=== PATIENT | male | born 1990 | race Caucasian/White ===

== ENCOUNTER 2017-08-30 03:48 | Emergency (ER) | payer BC, OTHER ==
--- NOTE | 2017-08-30 04:01 | EDM.PDOC ---
ED HPI GENERAL MEDICAL PROBLEM - General Chief Complaint: Chest Pain Stated Complaint: SOB Time Seen by Provider: 08/30/17 04:01 - History of Present Illness INITIAL COMMENTS - FREE TEXT/NARRATIVE: 26-year-old male presents emergency room after having an episode of chest pain. Patient had a 15-20 minute episode about 45 minutes prior to arrival to the emergency room where he had sharp chest discomfort making it difficult for him to breathe. The pain was in his lower chest substernal area did not involve his back. His symptoms have completely resolved at this point. Patient is otherwise and breathing okay no cough no wheezing. Patient has not had any fevers or chills. Patient's chronic abdominal issues but nothing out of the ordinary for him he has not had any heartburn or reflux. The patient had an episode similar to this about a month ago but tonight was more severe. The patient was seen here a little over a year ago diagnosed with bronchitis this is much different than that. Chest Pain Score (Numeric/FACES): 4 - Related Data Allergies Allergy/AdvReac Type Severity Reaction Status Date / Time No Known Allergies Allergy Verified 05/08/16 02:33 Home Meds: Home Meds Cyclobenzaprine [Flexeril] 10 mg PO Q8H PRN 08/30/17 [History] oxyCODONE HCl/Acetaminophen [Percocet 5-325 mg Tablet] 1 tab PO Q6H PRN [History] Past Medical History - Past Health History Medical/Surgical History: Denies Medical/Surgical History Gastrointestinal History: Reports: Irritable Bowel Syndrome Social & Family History - Tobacco Use Smoking Status *Q: Current Every Day Smoker Years of Tobacco use: 6 Packs/Tins Daily: 0.5 - Alcohol Use Days Per Week of Alcohol Use: 4 Number of Drinks Per Day: 8 Total Drinks Per Week: 32 - Recreational Drug Use Recreational Drug Use: No - Living Situation & Occupation Living situation: Reports: Single Occupation: Employed ED ROS GENERAL - Review of Systems Review Of Systems: See Below Constitutional: Reports: No Symptoms HEENT: Reports: No Symptoms Respiratory: Reports: Shortness of Breath (Only with the episode otherwise he is doing fine) Cardiovascular: Reports: Chest Pain (Only with the episode otherwise he is doing fine) GI/Abdominal: Reports: Abdominal Pain (Chronic) : Reports: No Symptoms Neurological: Reports: No Symptoms Psychiatric: Reports: No Symptoms ED EXAM, GENERAL - Physical Exam Exam: See Below Exam Limited By: No Limitations General Appearance: Alert, No Apparent Distress, Other (He is symptom-free at this time) Head: Atraumatic, Normocephalic Neck: Normal Inspection, Supple, Non-Tender, Full Range of Motion Respiratory/Chest: No Respiratory Distress, Lungs Clear, Normal Breath Sounds Cardiovascular: Regular Rate, Rhythm, No Edema, No Murmur GI/Abdominal: Normal Bowel Sounds, Soft, Other (Vague discomfort no rebound or guarding no rigidity noted distention) Back Exam: Normal Inspection. No: CVA Tenderness (L), CVA Tenderness (R) Extremities: Non-Tender, No Pedal Edema, Other (No calf tenderness) Psychiatric: Normal Affect, Normal Mood EKG INTERPRETATION EKG Date: 08/30/17 Rhythm: NSR [place]: Normal P-Wave: Present QRS: Normal ST-T: Normal QT: Normal Comparison: No Change EKG Interpretation Comments: Normal age appropriate EKG Course - Vital Signs Last Recorded V/S: Last Vital Signs Temp 36.2 C 08/30/17 03:56 Pulse 90 08/30/17 03:56 Resp 24 H 08/30/17 03:56 BP 131/90 08/30/17 03:56 Pulse Ox 97 08/30/17 03:56 - Re-Assessments/Exams Free Text/Narrative Re-Assessment/Exam: 08/30/17 04:35 Patient is symptom-free at this point he refuses chest x-ray or any blood work. Offered to observe him see if his symptoms returned he would like to go. Departure - Departure Time of Disposition: 04:29 Disposition: Home, Self-Care 01 Clinical Impression: Chest pain Referrals: Oskar Bustamante PA-C [Primary Care Provider] - Forms: ED Department Discharge Additional Instructions: Return to the emergency room with any questions or problems. Follow-up with your regular provider in the clinic early this next week for recheck.
[2017-08-30 04:02] VITALS: BP 131/90
== END 2017-08-30 04:32 | disposition home or self-care (01) ==
LOC: JD.ED 03:48
DX: R07.9 Chest pain, unspecified (principal); F17.210 Nicotine dependence, cigarettes, uncomplicated
CPT/HCPCS: 93005; 93010; 99283; 99285-25

== ENCOUNTER 2021-06-11 02:06 | Emergency (ER) | payer OTHER ==
[2021-06-11 02:37] VITALS: BP 146/100; PULSE 112
== END 2021-06-11 02:35 | disposition left against medical advice (07) ==
LOC: JD.ED 02:06
DX: Z53.21 Procedure and treatment not carried out due to patient leaving prior to being seen by health care provider (principal)

== ENCOUNTER 2021-06-23 15:15 | Emergency (ER) | payer OTHER ==
[2021-06-23] MEDS ORDERED: LORazepam 2 MG/ML SDV IM ONE (15:59)
--- NOTE | 2021-06-23 15:59 | EDM.PDOC ---
ED HPI GENERAL MEDICAL PROBLEM - General Chief Complaint: General Stated Complaint: UNABLE TO MOVE HANDS Time Seen by Provider: 06/23/21 15:52 - History of Present Illness INITIAL COMMENTS - FREE TEXT/NARRATIVE: 30-year-old male presents the emergency room with difficulty moving his hands. This started out as generalized upper extremity from the elbow distal numbness and tingling to not being able to move his fingers. Patient complains of being very anxious at this time. The patient has not had an episode like this where he could not move his hands however he has had problems with anxiety to some degree in the past. Patient states that he is unemployed and his recently left him. 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 Home Meds: Home Meds LORazepam [Ativan] 1 mg PO DAILY PRN #8 tablet 06/23/21 [Rx] Past Medical History - Past Health History Medical/Surgical History: Denies Medical/Surgical History HEENT History: Reports: None Cardiovascular History: Reports: None Respiratory History: Reports: None Gastrointestinal History: Reports: Irritable Bowel Syndrome Genitourinary History: Reports: None Musculoskeletal History: Reports: None, Arthritis Other Musculoskeletal History: noted to hip bu can't recall which one Neurological History: Reports: Concussion Psychiatric History: Reports: None, Anxiety Other Psychiatric History: pt feels he had anxiety attack which is new for him Endocrine/Metabolic History: Reports: None Hematologic History: Reports: None Immunologic History: Reports: None Oncologic (Cancer) History: Reports: None Dermatologic History: Reports: None - Infectious Disease History Infectious Disease History: Reports: Chicken Pox - Past Surgical History Head Surgeries/Procedures: Reports: None HEENT Surgical History: Reports: None Cardiovascular Surgical History: Reports: None Respiratory Surgical History: Reports: None GI Surgical History: Reports: None Male Surgical History: Reports: None Endocrine Surgical History: Reports: None Neurological Surgical History: Reports: None Musculoskeletal Surgical History: Reports: None, Other (See Below) Other Musculoskeletal Surgeries/Procedures:: has left knee issues Oncologic Surgical History: Reports: None Dermatological Surgical History: Reports: None Social & Family History - Family History Family Medical History: No Pertinent Family History Cardiac: Reports: [place] Neurological: Reports: CVA - Tobacco Use Tobacco Use Status *Q: Current Every Day Tobacco User Years of Tobacco use: 10 Packs/Tins Daily: 0.5 - Caffeine Use Caffeine Use: Reports: Tea - Recreational Drug Use Recreational Drug Use: No - Living Situation & Occupation Living situation: Reports: Single Occupation: Employed ED ROS GENERAL - Review of Systems Review Of Systems: See Below Constitutional: Reports: No Symptoms HEENT: Reports: No Symptoms Respiratory: Reports: No Symptoms Cardiovascular: Reports: No Symptoms Endocrine: Reports: No Symptoms GI/Abdominal: Reports: No Symptoms Musculoskeletal: Denies: Shoulder Pain, Arm Pain, Back Pain, Hand Pain Skin: Reports: No Symptoms Neurological: Denies: Headache Psychiatric: Reports: Anxiety ED EXAM, GENERAL - Physical Exam Exam: See Below Exam Limited By: No Limitations General Appearance: Alert, Anxious Eye Exam: Bilateral Eye: Normal Inspection Ears: Normal External Exam, Normal Canal, Hearing Grossly Normal, Normal TMs Nose: Normal Inspection, Normal Mucosa, No Blood Throat/Mouth: Normal Inspection, Normal Lips, Normal Teeth, Normal Gums, Normal Oropharynx, Normal Voice, No Airway Compromise Head: Atraumatic, Normocephalic Neck: Normal Inspection, Supple, Non-Tender, Full Range of Motion. No: Lymphadenopathy (L), Lymphadenopathy (R) Respiratory/Chest: No Respiratory Distress, Lungs Clear, Normal Breath Sounds Cardiovascular: Regular Rate, Rhythm, No Edema, No Murmur GI/Abdominal: Normal Bowel Sounds, Soft, Non-Tender Neurological: Alert, Oriented, Other (The patient can do everything with his upper extremities but he has hesitancy to doing it) Psychiatric: Anxious Lymphatic: No Adenopathy Course - Vital Signs Last Recorded V/S: Last Vital Signs Temp 36.6 C 06/23/21 18:26 Pulse 74 06/23/21 18:26 Resp 16 06/23/21 18:26 BP 113/88 06/23/21 18:26 Pulse Ox 98 06/23/21 18:26 - Orders/Labs/Meds Meds: Medications Discontinued Medications Generic Name Dose Route Start Last Admin Trade Name Freq PRN Reason Stop Dose Admin Lorazepam 2 mg 06/23/21 15:59 06/23/21 16:14 Lorazepam 2 Mg/Ml Sdv IM 06/23/21 16:00 2 mg ONETIME ONE Administration - Re-Assessments/Exams Free Text/Narrative Re-Assessment/Exam: 06/23/21 18:44 Patient was given 2 mg of IM lorazepam and he was able to sleep he feels much better his hands work fine and he is back to normal we will discharge. I did have a long discussion with the patient he is not having any suicidal thoughts or thoughts of harming anyone. Departure - Departure Time of Disposition: 18:45 Disposition: Home, Self-Care 01 Clinical Impression: Anxiety - Discharge Information Referrals: Oskar Bustamante PA-C [Primary Care Provider] - Forms: ED Department Discharge Additional Instructions: Return to the emergency room with any questions problems or worsening symptoms. Follow-up with your regular healthcare provider this next week. I have sent a prescription for Ativan 1 mg he may use 1 daily only if absolutely needed for your anxiety. I have given you 8 pills. Allow 12 hours after using this medication before driving or returning to work as it can cause significant sedation and limit your abilities to drive and operate equipment. Sepsis Event Note (ED) - Focused Exam Vital Signs: Vital Signs Temp Pulse Resp BP Pulse Ox 06/23/21 18:26 36.6 C 74 16 113/88 98 06/23/21 15:37 36.7 C 71 20 129/94 H 99
[2021-06-23 18:27] VITALS: BP 113/88; PULSE 74
== END 2021-06-23 19:12 | disposition home or self-care (01) ==
LOC: JD.ED 15:15
DX: F41.9 Anxiety disorder, unspecified (principal); Z72.0 Tobacco use; Z86.73 Personal history of transient ischemic attack (TIA), and cerebral infarction without residual deficits
CPT/HCPCS: 96372; 99283; J2060

== ENCOUNTER 2021-08-22 15:05 | Emergency (ER) | payer SELFPAY ==
[2021-08-22 15:14] VITALS: BP 129/97; PULSE 88
== END 2021-08-22 15:30 ==
LOC: JD.ED 15:05
DX: Z53.21 Procedure and treatment not carried out due to patient leaving prior to being seen by health care provider (principal)

== ENCOUNTER 2021-08-22 19:03 | Emergency (ER) | payer SELFPAY ==
[2021-08-22 19:42] VITALS: BP 134/97; PULSE 88
== END 2021-08-22 19:27 | disposition left against medical advice (07) ==
LOC: JD.ED 19:03
DX: Z53.21 Procedure and treatment not carried out due to patient leaving prior to being seen by health care provider (principal)

== ENCOUNTER 2021-08-23 05:59 | Emergency (ER) | payer SELFPAY ==
[2021-08-23 06:11] VITALS: BP 142/105; PULSE 98
[2021-08-23] MEDS ORDERED: Ondansetron 4 MG/2 ML SDV IVPUSH ONE (06:29)
[2021-08-23] MEDS ORDERED: Lactated Ringers 1,000 ML IV ONE (06:29)
[2021-08-23] MEDS ORDERED: LORazepam 2 MG/ML SDV IVPUSH ONE (06:29)
--- NOTE | 2021-08-23 07:05 | EDM.PDOC ---
ED HPI GENERAL MEDICAL PROBLEM - General Chief Complaint: Behavioral/Psych Stated Complaint: ANXIETY Time Seen by Provider: 08/23/21 06:25 - History of Present Illness INITIAL COMMENTS - FREE TEXT/NARRATIVE: 30-year-old male presents the emergency room complaining of anxiety and nausea and vomiting. Patient is apparently has a longstanding anxiety disorder. He has been out of his Ativan for I am not sure how long. The patient states he has been taking Lexapro for 6 to 8 weeks for his anxiety and is not helping. So 2 days ago he stopped it cold turkey the patient really does not give any more useful history other than he is fairly demanding on his time restraints and wants everything done within just a few minutes so he can get back to his apartment. - Related Data Allergies Allergy/AdvReac Type Severity Reaction Status Date / Time No Known Allergies Allergy Verified 08/23/21 06:07 Home Meds: Home Meds . [No Known Home Meds] 08/22/21 [History] Past Medical History - Past Health History Medical/Surgical History: Denies Medical/Surgical History HEENT History: Reports: None Cardiovascular History: Reports: None Respiratory History: Reports: None Gastrointestinal History: Reports: Irritable Bowel Syndrome Genitourinary History: Reports: None Musculoskeletal History: Reports: None, Arthritis Other Musculoskeletal History: noted to hip bu can't recall which one Neurological History: Reports: Concussion Psychiatric History: Reports: Anxiety Other Psychiatric History: pt feels he had anxiety attack which is new for him Endocrine/Metabolic History: Reports: None Hematologic History: Reports: None Immunologic History: Reports: None Oncologic (Cancer) History: Reports: None Dermatologic History: Reports: None - Infectious Disease History Infectious Disease History: Reports: Chicken Pox - Past Surgical History Head Surgeries/Procedures: Reports: None HEENT Surgical History: Reports: None Cardiovascular Surgical History: Reports: None Respiratory Surgical History: Reports: None GI Surgical History: Reports: None Male Surgical History: Reports: None Endocrine Surgical History: Reports: None Neurological Surgical History: Reports: None Musculoskeletal Surgical History: Reports: None, Other (See Below) Other Musculoskeletal Surgeries/Procedures:: has left knee issues Oncologic Surgical History: Reports: None Dermatological Surgical History: Reports: None Social & Family History - Family History Family Medical History: No Pertinent Family History Cardiac: Reports: [place] Neurological: Reports: CVA - Tobacco Use Tobacco Use Status *Q: Unknown Ever Used Tobacco - Caffeine Use Caffeine Use: Reports: Tea - Living Situation & Occupation Living situation: Reports: Single Occupation: Employed ED ROS GENERAL - Review of Systems Review Of Systems: See Below Constitutional: Reports: No Symptoms HEENT: Reports: No Symptoms Respiratory: Reports: No Symptoms Cardiovascular: Reports: No Symptoms GI/Abdominal: Reports: Nausea, Vomiting. Denies: Abdominal Pain : Reports: No Symptoms Musculoskeletal: Reports: No Symptoms Skin: Reports: No Symptoms Psychiatric: Reports: Agitation, Anxiety ED EXAM, GENERAL - Physical Exam Exam: See Below Exam Limited By: No Limitations General Appearance: Alert, No Apparent Distress Eye Exam: Bilateral Eye: Normal Inspection Ears: Normal External Exam, Normal Canal, Hearing Grossly Normal, Normal TMs Ear Exam: Bilateral Ear: Auricle Normal, Canal Normal, TM normal Nose: Normal Inspection, Normal Mucosa, No Blood Throat/Mouth: Normal Inspection, Normal Lips, Normal Teeth, Normal Gums, Normal Oropharynx, Normal Voice, No Airway Compromise Head: Atraumatic, Normocephalic Neck: Normal Inspection, Supple, Non-Tender, Full Range of Motion. No: Lymph adenopathy (L), Lymphadenopathy (R) Respiratory/Chest: No Respiratory Distress, Lungs Clear, Normal Breath Sounds Cardiovascular: Regular Rate, Rhythm, No Edema, No Murmur GI/Abdominal: Normal Bowel Sounds, Soft, Non-Tender Neurological: Alert, Oriented, Normal Cognition Psychiatric: Anxious, Other (Patient is quite demanding especially when it comes to his time.) Course - Vital Signs Last Recorded V/S: Last Vital Signs Temp 36.6 C 08/23/21 06:07 Pulse 98 08/23/21 06:07 Resp 17 08/23/21 06:07 BP 142/105 H 08/23/21 06:07 Pulse Ox 98 08/23/21 06:07 - Orders/Labs/Meds Labs: Laboratory Tests 08/23/21 08/23/21 08/23/21 Range/Units 06:40 06:40 06:40 WBC 4.97 (4.23-9.07) K/mm3 RBC 4.70 (4.63-6.08) M/mm3 Hgb 15.4 (13.7-17.5) gm/dl Hct 45.1 (40.1-51.0) % MCV 96.0 H D (79.0-92.2) fl MCH 32.8 H (25.7-32.2) pg MCHC 34.1 (32.2-35.5) g/dl RDW Std Deviation 48.7 H (35.1-43.9) fL Plt Count 175 (163-337) K/mm3 MPV 9.4 (9.4-12.3) fl Neut % (Auto) 60.4 (34.0-67.9) % Lymph % (Auto) 24.9 (21.8-53.1) % [place] % (Auto) 12.5 H (5.3-12.2) % Eos % (Auto) 1.4 (0.8-7.0) Baso % (Auto) 0.4 (0.1-1.2) % Neut # (Auto) 3.00 (1.78-5.38) K/mm3 Lymph # (Auto) 1.24 L (1.32-3.57) K/mm3 [place] # (Auto) 0.62 (0.30-0.82) K/mm3 Eos # (Auto) 0.07 (0.04-0.54) K/mm3 Baso # (Auto) 0.02 (0.01-0.08) K/mm3 Sodium 147 H (136-145) mEq/L Potassium 3.4 L (3.5-5.1) mEq/L Chloride 104 (98-107) mEq/L Carbon Dioxide 29 (21-32) mEq/L Anion Gap 17.4 H (5-15) BUN 6 L (7-18) mg/dL Creatinine 0.9 (0.7-1.3) mg/dL Est Cr Clr Drug Dosing 112.42 mL/min Estimated GFR (MDRD) > 60 (>60) mL/min BUN/Creatinine Ratio 6.7 L (14-18) Glucose 98 (70-99) mg/dL Calcium 8.2 L (8.5-10.1) mg/dL Total Bilirubin 0.5 (0.2-1.0) mg/dL AST 151 H (15-37) U/L ALT 152 H (16-63) U/L Alkaline Phosphatase 106 (46-116) U/L Total Protein 6.7 (6.4-8.2) g/dl Albumin 3.6 (3.4-5.0) g/dl Globulin 3.1 gm/dL Albumin/Globulin Ratio 1.2 (1-2) Lipase 460 H (73-393) U/L TSH 3rd Generation 0.650 (0.358-3.74) uIU/mL Meds: Medications Discontinued Medications Generic Name Dose Route Start Last Admin Trade Name Freq PRN Reason Stop Dose Admin Lactated Ringer's 1,000 mls @ 999 mls/hr 08/23/21 06:29 08/23/21 06:56 Ringers, Lactated IV 08/23/21 07:29 999 mls/hr .BOLUS ONE Administration Lorazepam 1 mg 08/23/21 06:29 Lorazepam 2 Mg/Ml Sdv IVPUSH 08/23/21 06:30 ONETIME ONE Ondansetron HCl 4 mg 08/23/21 06:29 08/23/21 06:48 Ondansetron 4 Mg/2 Ml Sdv IVPUSH 08/23/21 06:30 4 mg ONETIME ONE Administration - Re-Assessments/Exams Free Text/Narrative Re-Assessment/Exam: 08/23/21 07:08 I have agreed to start an IV for fluids for medication but told him in no uncertain terms it may take an hour and a half to get all of this done and get the results back he agrees 08/23/21 07:12 The patient left the department after the IV was started he did get a dose of Zofran but nothing else. Departure - Departure Time of Disposition: 07:30 Disposition: Eloped 07 Clinical Impression: Anxiety - Discharge Information Referrals: Oskar Bustamante, CLEMENTE [Primary Care Provider] - Forms: ED Department Discharge Sepsis Event Note (ED) - Evaluation Sepsis Screening Result: No Definite Risk
== END 2021-08-23 07:25 | disposition left against medical advice (07) ==
LOC: JD.ED 05:59
DX: F41.9 Anxiety disorder, unspecified (principal)
CPT/HCPCS: 36415; 80053; 83690; 84443; 85025; 96374; 99284; J2405; J7120

== ENCOUNTER 2021-08-27 00:42 | Emergency (ER) | payer SELFPAY | END 2021-08-27 01:30 | disposition left against medical advice (07) | LOC: JD.ED 00:42 | DX: Z53.21 Procedure and treatment not carried out due to patient leaving prior to being seen by health care provider (principal) ==

== ENCOUNTER 2021-09-02 22:36 | Emergency (ER) | payer SELFPAY ==
[2021-09-02 22:50] VITALS: BP 148/109; PULSE 92
[2021-09-02 23:36] LABS: CORONAVIRUS COVID-19 NAA NEGATIVE (NEGATIVE)
[2021-09-02] MEDS ORDERED: Ondansetron 4 MG Tab.DIS PO ONE (23:36)
[2021-09-02] MEDS ORDERED: Alum Hydrox/Mag Hydrox/Simeth 30 ML, Lidocaine 2% 15 ML PO STA ×2 (23:36)
--- NOTE | 2021-09-02 23:40 | EDM.PDOC ---
ED HPI GENERAL MEDICAL PROBLEM - General Chief Complaint: Abdominal Pain Stated Complaint: ALONDRA AMB Time Seen by Provider: 09/02/21 23:22 Source of Information: Reports: Patient History Limitations: Reports: No Limitations - History of Present Illness INITIAL COMMENTS - FREE TEXT/NARRATIVE: Mr. Moreno is a 30-year-old man who now presents to the ED by EMS after experiencing a small amount of hematemesis around 22:00 tonight. The patient states that he has been experiencing watery diarrhea, about 10 episodes per day, for the past 8 years, and daily emesis for the past 6 weeks, but no prior spells of hematemesis. He states that he has not taken any [id number] or prescription medications to address any of his symptoms, however, he is scheduled to see a surgeon to arrange for an EGD/colonoscopy tomorrow, 09/03/2021. Here in the ED, the patient's initial BP is found to be mildly elevated at 148/109, otherwise, he is hemodynamically stable, afebrile, saturating 95% on room air. He appears to be quite anxious, although in no acute distress. Other than the vomiting and diarrhea, the patient denies having a recent fever, chills, sore throat, ear pain, nasal or sinus congestion, cough, dyspnea, chest pain, palpitations, nausea, vomiting, constipation, diarrhea, abdominal pain, urinary symptoms, recent weight gain or weight loss, recent bloody bowel movements or black bowel movements, recent joint aches, headaches, or rashes. The patient's PCP is JULIANNA Santos. He does not know the name of the Surgeon that he is scheduled to see tomorrow. He has not received a COVID vaccination, nor an influenza vaccination this season, indeed, the patient states that he has never received any vaccination, ever. - Related Data Allergies Allergy/AdvReac Type Severity Reaction Status Date / Time Opioids-Meperidine and Allergy Nausea and Verified 09/02/21 22:50 Related Vomiting Home Meds: Home Meds Escitalopram [Lexapro] 20 mg PO DAILY 09/02/21 [History] Past Medical History Psychiatric History: Reports: Anxiety, Depression - Infectious Disease History Infectious Disease History: Reports: Chicken Pox Social & Family History - Tobacco Use Tobacco Use Status *Q: Current Every Day Tobacco User Years of Tobacco use: 12 Packs/Tins Daily: 0.1 Packs/Tins Daily Comment: Down from 1/2 pk per week Tobacco Use Comment: Started smoking 2009 - Caffeine Use Caffeine Use: Reports: None - Alcohol Use Alcohol Use History: Yes Date/Time of Last Drink Comment: Alcoholic, now down to 1 glass per week - Recreational Drug Use Recreational Drug Use: Yes Drug Use in Last 12 Months: No Recreational Drug Type: Reports: Marijuana/Hashish (last smoked in HS) - Living Situation & Occupation Living situation: Reports: (getting ), Alone Occupation: Unemployed ED ROS GENERAL - Review of Systems Review Of Systems: Comprehensive ROS is negative, except as noted in HPI. ED EXAM, GI/ABD - Physical Exam Exam: See Below Exam Limited By: No Limitations General Appearance: Alert, WD/WN, Moderate Distress (Patient quite anxious) Eyes: Bilateral: Normal Appearance, EOMI Ears: Normal External Exam, Hearing Grossly Normal Nose: Normal Inspection Throat/Mouth: Normal Inspection, Normal Lips, Normal Voice, No Airway Compromise Head: Atraumatic, Normocephalic Neck: Normal Inspection, Full Range of Motion Respiratory/Chest: No Respiratory Distress, Lungs Clear, Normal Breath Sounds, No Accessory Muscle Use, Chest Non-Tender Cardiovascular: Normal Peripheral Pulses, Regular Rate, Rhythm, No Edema, No Gallop, No JVD, No Murmur, No Rub GI/Abdominal Exam: Normal Bowel Sounds (active), Soft, No Organomegaly, No Distention, No Abnormal Bruit, No Mass, Tender (generalized, non-focal) Back Exam: Normal Inspection, Full Range of Motion, NT Extremities: Normal Inspection, Normal Range of Motion, No Pedal Edema, Normal Capillary Refill Neurological: Alert, Oriented, Normal Cognition, No Motor/Sensory Deficits Psychiatric: Anxious Skin Exam: Warm, Dry, Intact, Normal Color, No Rash Course - Vital Signs Last Recorded V/S: Last Vital Signs Temp 36.1 C 09/02/21 22:49 Pulse 92 09/02/21 22:49 Resp 18 09/02/21 22:49 BP 148/109 H 09/02/21 22:49 Pulse Ox 95 09/02/21 22:49 - Orders/Labs/Meds Labs: Laboratory Tests 09/02/21 09/02/21 09/02/21 Range/Units 22:45 23:39 23:39 WBC 3.20 L (4.23-9.07) K/mm3 RBC 5.06 (4.63-6.08) M/mm3 Hgb 16.6 (13.7-17.5) gm/dl Hct 47.8 (40.1-51.0) % MCV 94.5 H (79.0-92.2) fl MCH 32.8 H (25.7-32.2) pg MCHC 34.7 (32.2-35.5) g/dl RDW Std Deviation 49.3 H (35.1-43.9) fL Plt Count 126 L (163-337) K/mm3 MPV 9.9 (9.4-12.3) fl Neutrophils % (Manual) 52 (40-60) % Band Neutrophils % 0 (0-10) % Lymphocytes % (Manual) 34 (20-40) % Atypical Lymphs % 0 % Monocytes % (Manual) 13 H (2-10) % Eosinophils % (Manual) 0 L (0.8-7.0) % Basophils % (Manual) 1 (0.2-1.2) Platelet Estimate Decreased Plt Morphology Comment Normal Anisocytosis 1+ slight RBC Morph Comment Abnormal Sodium 141 (136-145) mEq/L Potassium 3.3 L (3.5-5.1) mEq/L Chloride 103 (98-107) mEq/L Carbon Dioxide 24 (21-32) mEq/L Anion Gap 17.3 H (5-15) BUN 4 L (7-18) mg/dL Creatinine 0.9 (0.7-1.3) mg/dL Est Cr Clr Drug Dosing 114.25 mL/min Estimated GFR (MDRD) > 60 (>60) mL/min BUN/Creatinine Ratio 4.4 L (14-18) Glucose 113 H (70-99) mg/dL Calcium 8.2 L (8.5-10.1) mg/dL Total Bilirubin 0.6 (0.2-1.0) mg/dL AST 209 H (15-37) U/L ALT 172 H (16-63) U/L Alkaline Phosphatase 121 H (46-116) U/L Total Protein 7.4 (6.4-8.2) g/dl Albumin 3.9 (3.4-5.0) g/dl Globulin 3.5 gm/dL Albumin/Globulin Ratio 1.1 (1-2) Influenza Type A RNA Negative (NEGATIVE) Influenza Type B RNA Negative (NEGATIVE) SARS-CoV-2 RNA (DUSTIN) Negative (NEGATIVE) Meds: Medications Discontinued Medications Generic Name Dose Route Start Last Admin Trade Name Anabella PRN Reason Stop Dose Admin Al Hydroxide/Mg Hydroxide 30 0 ml 09/02/21 23:36 ml/ Lidocaine HCl 15 ml PO 09/02/21 23:37 ONETIME STA Ondansetron HCl 4 mg 09/02/21 23:36 Ondansetron 4 Mg Tab.Dis PO 09/02/21 23:37 ONETIME ONE - Re-Assessments/Exams Free Text/Narrative Re-Assessment/Exam: 09/02/21 23:37 A swab for the SARS-CoV-2 virus and influenza A + B viruses was collected at triage. While it sounds like the volume of blood that the patient vomited is quite small, I have ordered orthostatics and some blood work to make sure. In the meantime, the patient will be given a GI cocktail and Zofran ODT. 09/03/21 00:06 Notified a short while ago by [facility] that the patient was not cooperative with orthostatics, and I was just notified that the patient just eloped the ED. The patient's CBC was remarkable for leukopenia of 3.20 and thrombocytopenia of 126,000, with the remainder of his CBC being unremarkable. His swab for the SARS-CoV-2 virus and influenza A + B viruses was negative for all. Results of his CMP are still pending. Departure - Departure Time of Disposition: 00:05 Disposition: Eloped 07 Condition: Good Clinical Impression: Hematemesis, Severe anxiety, Nausea & vomiting, Diarrhea - Discharge Information *PRESCRIPTION DRUG MONITORING PROGRAM REVIEWED*: Not Applicable *COPY OF PRESCRIPTION DRUG MONITORING REPORT IN PATIENT SADE: Not Applicable Referrals: Oskar Bustamante PA-C [Physician [employer]] - Forms: ED Department Discharge Sepsis Event Note (ED) - Focused Exam Vital Signs: Vital Signs Temp Pulse Resp BP Pulse Ox 09/02/21 22:49 36.1 C 92 18 148/109 H 95
== END 2021-09-03 00:08 | disposition left against medical advice (07) ==
LOC: JD.ED 22:36
DX: K92.0 Hematemesis (principal); F41.9 Anxiety disorder, unspecified; R19.7 Diarrhea, unspecified; Z88.5 Allergy status to narcotic agent; Z72.0 Tobacco use; Z20.822 Contact with and (suspected) exposure to COVID-19
CPT/HCPCS: 0240U; 36415; 80053; 85007; 85027; 99285

== ENCOUNTER 2021-09-28 20:09 | Emergency (ER) | payer SELFPAY ==
[2021-09-28] MEDS ORDERED: Lidocaine 1% with EPINEPHrine 1:100,000 20 ML MDV ONE (20:33)
[2021-09-28 20:34] VITALS: BP 122/93; PULSE 118
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
--- NOTE | 2021-09-29 10:29 | CR ---
Left ankle: 3 views of the left ankle were obtained. Comparison: No prior ankle study is available. Ankle mortise is symmetric. No fracture, dislocation or other bony abnormalities appreciated. Impression: 1. Nothing acute is seen on 3-view left ankle exam. Diagnostic code #1
== END 2021-09-28 23:28 | disposition home or self-care (01) ==
LOC: JD.ED 20:09
DX: S41.012A Laceration without foreign body of left shoulder, initial encounter (principal); S93.402A Sprain of unspecified ligament of left ankle, initial encounter; Z88.8 Allergy status to other drugs, medicaments and biological substances; Z72.0 Tobacco use
CPT/HCPCS: 12002; 36415; 73610-26-LT; 73610-LT; 80048; 80307; 85025; 99283; 99283-25

== ENCOUNTER 2022-04-17 18:00 | Emergency (ER) | payer SELFPAY ==
[2022-04-17 18:18] VITALS: BP 144/106; PULSE 113
[2022-04-17] MEDS ORDERED: Lidocaine 1% 10 ML MDV INJECT ONE (18:53)
== END 2022-04-17 19:58 ==
LOC: JD.ED 18:00
DX: S41.112A Laceration without foreign body of left upper arm, initial encounter (principal); F10.920 Alcohol use, unspecified with intoxication, uncomplicated; Z88.5 Allergy status to narcotic agent; Z79.899 Other long term (current) drug therapy; X78.9XXA Intentional self-harm by unspecified sharp object, initial encounter
CPT/HCPCS: 12002; 80306; 93005; 99283; 99285

== ENCOUNTER 2022-11-18 19:00 | Emergency (ER) | payer OTHER ==
[2022-11-18 19:37] VITALS: BP 116/77; PULSE 89
[2022-11-18] MEDS ORDERED: Lidocaine/EPINEPHrine/Tetracaine Soln 1 ML TOP ONE (20:35)
[2022-11-18] MEDS ORDERED: Lidocaine 1% 10 ML MDV INJECT ONE (21:29)
== END 2022-11-18 21:41 | disposition left against medical advice (07) ==
LOC: JD.ED 19:00
DX: S81.012A Laceration without foreign body, left knee, initial encounter (principal); S80.02XA Contusion of left knee, initial encounter; S70.02XA Contusion of left hip, initial encounter; S50.02XA Contusion of left elbow, initial encounter; F17.210 Nicotine dependence, cigarettes, uncomplicated; Z88.5 Allergy status to narcotic agent; V29.99XA Rider (driver) (passenger) of other motorcycle injured in unspecified traffic accident, initial encounter
CPT/HCPCS: 73502-26-LT; 73502-LT; 73564-26-LT; 73564-LT; 99283; J3490

== ENCOUNTER 2024-01-27 10:01 | Emergency (ER) | payer SELFPAY ==
[2024-01-27] MEDS: Sodium Chloride 0.9% 1,000 ML IV STA (11:42)
[2024-01-27 11:51] LABS: HEMATOCRIT 43.4 % (42.0-52.0); HEMOGLOBIN 14.7 gm/dl (14.0-18.0); MEAN CORPUSCULAR HEMOGLOBIN 35.9 pg (28.0-32.0); MEAN CORPUSCULAR HGB CONC 33.9 g/dl (32.0-36.0); MEAN CORPUSCULAR VOLUME 106.1 fl (83.0-99.0); MEAN PLATELET VOLUME 10.1 fl (9.4-12.4); PLATELET COUNT,PLT 144 K/mm3 (150-400); RED BLOOD CELL COUNT 4.09 M/mm3 (4.52-5.90); WHITE BLOOD CELL COUNT,WBC 5.39 K/mm3 (3.9-11.3)
[2024-01-27 12:19] LABS: BAND PERCENT MAN 0 % (0-10); BASOPHILS PERCENT MAN 0 (0.2-1.2); EOSINOPHILS PERCENT MAN 1 % (0.8-7.0); LYMPHOCYTES % ATYPICAL MANUAL 0 %; LYMPHOCYTES PERCENT MAN 48 % (20-40); MONOCYTES PERCENT MAN 6 % (2-10)
[2024-01-27 12:20] LABS: ALBUMIN 3.8 g/dl (3.4-5.0); ANION GAP 14.6 (5-15); BILIRUBIN TOTAL 0.5 mg/dL (0.2-1.0); BUN/CREATININE RATIO 8.8 (14-18); CALCIUM 8.2 mg/dL (8.5-10.1); CREATININE 0.8 mg/dL (0.7-1.3); EST CRCL DRUG DOSING (CG) 122.75 mL/min; ETHANOL BLOOD MEDICAL 0.48 gm% (0.00); OVALOCYTES 1+ SLIGHT; POLYCHROMASIA 1+ SLIGHT; POTASSIUM,K 3.6 mEq/L (3.5-5.1); PROTEIN TOTAL,TP 7.8 g/dl (6.4-8.2); TSH 0.424 uIU/mL (0.358-3.74)
[2024-01-27 12:21] LABS: PLATELET COUNT ESTIMATE DECREASED
[2024-01-27 14:51] VITALS: BP 126/94; PULSE 84
== END 2024-01-27 12:50 | disposition home or self-care (01) ==
LOC: JD.ED 10:01
DX: S90.02XA Contusion of left ankle, initial encounter (principal); S30.1XXA Contusion of abdominal wall, initial encounter; F10.120 Alcohol abuse with intoxication, uncomplicated; Z88.6 Allergy status to analgesic agent; F17.210 Nicotine dependence, cigarettes, uncomplicated; W20.8XXA Other cause of strike by thrown, projected or falling object, initial encounter; Y90.9 Presence of alcohol in blood, level not specified
CPT/HCPCS: 36415; 80053; 80143; 80179; 80307; 84443; 85007; 85027; 99283; J7030